=== PATIENT | female | born 1945 | race Caucasian/White ===

== ENCOUNTER 2023-04-11 17:55 | Emergency (ER) | payer MEDICARE, SELFPAY ==
[2023-04-11 18:04] VITALS: BP 131/72; PULSE 77; RESP 20; TEMP 36.7; O2SAT 100
--- NOTE | 2023-04-11 18:34 | ED.EXTPRO ---
HPI - Extremity Problem General Chief complaint: Extremity Problem,Nontraumatic Stated complaint: Pain in Legs Time Seen by Provider: 04/11/23 18:34 Source: patient Mode of arrival: ambulatory Limitations: no limitations History of Present Illness HPI Narrative: 77 yo F presents with c/o pain to bilateral LEs, mostly to thigh area, becoming progressively worse since mid March. Reports LEs tight, painful, spasming. Pt had spine surgery February 19 for lumbar stenosis. This was her second surgery to her lumbar for stenosis surgery. She had surgery several years ago and states pain to LEs returned. She states her first surgeon sent her to another surgeon for the second surgery. she was told all stenosis was fixed but 2 wks after February 19 surgery she began having pain to left leg. She discussed this with her surgeon at her post op appt. She was given gabepentin. She began having pain to R leg about 2 to 3 wks ago. She is taking 100mg gabapentin TID and tylenol with no relief of pain. She states she cries all night due to pain and cant sleep. She is now using her walker because legs are painful and she doesn't want to cause a fall. She denies numbness/tingling. States back doesn't really hurt, it's my legs . She has called both her spine surgeons and her PCP regarding pain but did not hear back from anyone. She does not like taking narcotic pain medication because they all make her feel weird . She is not doing PT because she was waiting to finish gabapentin before starting . Pt wants CT scan of lumbar to see if stenosis is back . She does not want to wait in the ER for 6 hrs (states she called and asked wait time) and wonders if taking ambulance there will get her in faster for a scan. Ambulatory with steady gait using walker. No loss of bowel or bladder. All systems reviewed and negative except as noted above. Related Data Home Medications Medication Instructions Recorded Confirmed atorvastatin 10 mg tablet 10 mg PO DIRECTED 04/11/23 04/11/23 colestipol 1 gram tablet 1 g PO DIRECTED 04/11/23 04/11/23 estradiol 0.5 mg tablet 0.5 mg PO DIRECTED 04/11/23 04/11/23 gabapentin 100 mg capsule 100 mg PO DIRECTED 04/11/23 04/11/23 gabapentin 300 mg capsule 300 mg PO DIRECTED 04/11/23 04/11/23 hydrochlorothiazide 12.5 mg tablet 12.5 mg PO DIRECTED 04/11/23 04/11/23 lisinopril 40 mg tablet 40 mg PO DIRECTED 04/11/23 04/11/23 Allergies Allergy/AdvReac Type Severity Reaction Status Date / Time codeine Allergy Unknown Verified 04/11/23 18:31 etodolac Allergy Unknown Verified 04/11/23 18:31 hydrocodone Allergy Unknown Verified 04/11/23 18:31 meloxicam Allergy Unknown Verified 04/11/23 18:31 morphine Allergy Unknown Verified 04/11/23 18:31 omeprazole Allergy Rash Verified 04/11/23 18:34 propoxyphene [From Darvon] Allergy Unknown Verified 04/11/23 18:31 fentanyl AdvReac Other Verified 04/11/23 18:31 hydroxychloroquine AdvReac Other Verified 04/11/23 18:34 [From Plaquenil] tramadol AdvReac Hallucinati Verified 04/11/23 18:34 ng valacyclovir AdvReac Diarrhea Verified 04/11/23 18:34 Review of Systems Review of Systems: CONSTITUTIONAL: Denies fever, chills, or sweats. EYES: Denies visual changes, redness, or discharge. ENT: Denies rhinorrhea, congestion, sore throat, or otalgia. CARDIOVASCULAR: Denies chest pain, palpitations, or edema. RESPIRATORY: Denies cough or dyspnea. GASTROINTESTINAL: Denies abdominal pain, nausea, vomiting, or diarrhea. GENITOURINARY: Denies dysuria or hematuria. SKIN: Denies rash or itching. MUSCULOSKELETAL: Reports mild low back pain with severe pain to bilateral lower extremities. NEUROLOGIC: Denies headache, numbness, or weakness. PSYCHIATRIC: Denies anxiety or depression. All other systems reviewed are negative, except as documented in HPI. [facility] Comments At time of signature, agree with nursing past medical, surgical, social and family history. There is no relevant family h
== END 2023-04-11 19:00 | disposition home or self-care (01) ==
PROVIDERS: Emergency Provider Nurse Practitioner Family; PCP Internal Medicine
DX: G89.18 Other acute postprocedural pain (principal); M54.42 Lumbago with sciatica, left side; M54.41 Lumbago with sciatica, right side; I10 Essential (primary) hypertension; M79.7 Fibromyalgia; E11.9 Type 2 diabetes mellitus without complications
CPT/HCPCS: 99213; G0463